=== PATIENT | female | born 2000 | race Caucasian/White ===

== ENCOUNTER 2018-04-26 10:12 | Outpatient (CLI) | payer OTHER ==
[2018-04-26 11:32] LABS: Thyroid Stimulating Hormone 0.6332 uIU/mL (0.35-4.94)
[2018-04-26 17:39] LABS: Free T4 (Free Thyroxine) 0.98 ng/dL (0.70-1.48)
== END 2018-04-26 10:13 ==
LOC: MADLABBHPM 10:12 → EDSTATUS 10:15
PROVIDERS: ATTEND Family Medicine
DX: L65.9 Nonscarring hair loss, unspecified (principal); R63.5 Abnormal weight gain; E04.9 Nontoxic goiter, unspecified; Z83.49 Family history of other endocrine, nutritional and metabolic diseases
CPT/HCPCS: 36415; 84439; 84443